=== PATIENT | male | born 1945 | race Caucasian/White ===

== ENCOUNTER 2017-07-16 13:19 | Inpatient (IN) | payer BC, MEDICARE ==
--- NOTE | 2017-07-16 13:42 | ED ---
Vanesa Sadnoval Alfonso, scribed for Paul Nina MD on 07/16/17 at 1330 . HPI Chest Pain - HPI Summary HPI Summary: STEMI ALERT CALLED AT 1314 ETA 3 MINUTES. 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 Symptoms alleviated by nothing. He denies any PMHx at this time. Dr. Duran (advanced research programs director) at the EMS stretcher immediately upon the patients ED arrival. He evaluated the patient and requested ED bypass. Thus, cardiac catheterization lab will initiate all further treatment. - History of Current Complaint Hx Obtained From: Patient, EMS Onset/Duration: Started Minutes Ago - 40, Still Present Timing: Constant Current Severity: Severe Chest Pain Location: Mid Sternal Alleviating Factor(s): Nothing Associated Signs and Symptoms: Positive: Chest Pain PMH/Surg Hx/FS Hx/Imm Hx Previously Healthy: Yes Opthamlomology History: Denies: Hx Legally Blind EENT History: Denies: Hx Deafness Infectious Disease History: Denies: Traveled Outside the [place] in Last 30 Days - Family History Known Family History: Positive: Unknown - ED BYPASS FOR STEMI Review of Systems Negative: Fever, Chills Negative: Erythema Negative: Sore Throat Positive: Chest Pain Negative: Shortness Of Breath, Cough Negative: Abdominal Pain, Vomiting, Nausea Negative: dysuria, hematuria Negative: Myalgia, Edema Negative: Rash Neurological: Other - Negative dizziness All Other Systems Reviewed And Are Negative: Yes Physical Exam - Summary Physical Exam Summary: Constitutional: Well-developed, Well-nourished, Alert. (-) Distressed Skin: Warm, Dry HENT: Normocephalic; Atraumatic Eyes: Conjunctiva normal Neck: Musculoskeletal ROM normal neck. (-) JVD, (-) Stridor, (-) Tracheal deviation Cardio: Rhythm regular, rate normal, Heart sounds normal; Intact distal pulses; The pedal pulses are 2+ and symmetric. Radial pulses are 2+ and symmetric. (-) Murmur Pulmonary/Chest wall: Effort normal. (-) Respiratory distress, (-) Wheezes, (-) Rales Abd: Soft, (-) Tenderness, (-) Distension, (-) Guarding, (-) Rebound Musculoskeletal: (-) Edema Lymph: (-) Cervical adenopathy Neuro: Alert, Oriented x3 Psych: Mood and affect Normal Triage Information Reviewed: Yes Vital Signs Reviewed: Yes Chest Pain Course/Dx - Course Assessment/Plan: STEMI ALERT CALLED AT 1314 ETA 3 MINUTES. 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 Symptoms alleviated by nothing. He denies any PMHx at this time. Dr. Duran (advanced research programs director) at the EMS stretcher immediately upon the patients ED arrival. He evaluated the patient and requested ED bypass. Thus, cardiac catheterization lab will initiate all further treatment. The patient is agreeable with this plan. - Diagnoses Provider Diagnoses: Acute TX During the Visit The Following Alert/Code Occurred: STEMI Discharge - Discharge Plan Condition: Guarded Disposition: ADMITTED TO [facility] Discharge Disposition Comment: cardiac catheterization lab Referrals: No Primary Care Phys,NOPCP [Primary Care Provider] - The documentation as recorded by the Vanesa bermudez Alfonso accurately reflects the service I personally performed and the decisions made by me, Paul Nina MD.
[2017-07-16 13:47] LABS: Hematocrit 38 % (42-52); Hemoglobin 12.5 g/dl (14.0-18.0); Mean Corpuscular HGB Conc 33 g/dl (31-36); Mean Corpuscular Hemoglobin 31 pg (27-31); Mean Corpuscular Volume 93 fL (80-94); Mean Platelet Volume 8 um3 (7.4-10.4); Red Blood Count 4.06 10^6/ul (4.0-5.4); Red Cell Distribution Width 14 % (10.5-15); White Blood Count 6.6 10^3/ul (3.5-10.8)
[2017-07-16] MEDS ORDERED: Ticagrelor* 90 MG TAB PO ONE (13:51)
[2017-07-16 14:03] LABS: Albumin 3.8 g/dL (3.2-5.2); BUN/Creatinine Ratio 17.3 (8-20); Calcium 8.4 mg/dL (8.6-10.3); EGFR African American 96.7 (>60); EGFR Non-African American 75.2 (>60); Globulin 2.5 g/dL (2-4); Potassium 3.4 mmol/L (3.5-5.0); Total Bilirubin 0.6 mg/dL (0.2-1.0); Total Protein 6.3 g/dL (6.4-8.9)
[2017-07-16 14:05] LABS: Troponin I 0.03 ng/mL (<0.04)
[2017-07-16] MEDS ORDERED: Iohexol 350 (CONTRAST) 200 ML MDV IV ONE ×2 (14:20→14:48)
[2017-07-16] MEDS ORDERED: Adenosine* 3 MG/ML VIAL ONE (14:27)
[2017-07-16] MEDS ORDERED: Midazolam* 1 MG/ML 5 ML VIAL (5 MG) ONE (14:47)
[2017-07-16] MEDS ORDERED: Heparin(*) 1000 UNIT/ML 10 ML VIAL CATH LAB IV ONE (14:47)
[2017-07-16] MEDS ORDERED: fentaNYL* 50 MCG/ML 2 ML VIAL (100 MCG VIAL) ONE (14:47)
[2017-07-16] MEDS ORDERED: nitroGLYCERIN DRIP* 250 ML ONE (14:48)
[2017-07-16] MEDS ORDERED: VERAPAMIL 2.5 MG/ML 4 ML VIAL ONE (14:48)
[2017-07-16] MEDS ORDERED: Lidocaine 1% INJ* 10 MG/ML 30 ML SDV ONE (14:48)
[2017-07-16] MEDS ORDERED: Heparin 2 UNITS/ML IVPREMIX* 2,000 ML IV ONE (14:48)
[2017-07-16] MEDS ORDERED: Atropine SYRINGE* 0.1 MG/ML 10 ML SYRINGE (1 MG) ONE (14:54)
[2017-07-16] MEDS ORDERED: Nitroglycerin TAB 0.4 MG* 0.4 MG TAB SL PRN (15:17)
[2017-07-16] MEDS ORDERED: oxyCODONE/Acetamin 5/325 MG* TAB PO PRN (15:19)
[2017-07-16] MEDS ORDERED: Acetaminophen TAB* 325 MG PO PRN (15:19)
[2017-07-16] MEDS ORDERED: Ondansetron INJ* 2 MG/ML VIAL IV PRN (15:19)
[2017-07-16] MEDS ORDERED: Potassium Chlor TAB* 20 MEQ TAB.ER PO ONE (15:24)
[2017-07-16] MEDS ORDERED: NS 0.9% 1000 ML* 1,000 ML IV SCH (15:30)
[2017-07-16] MEDS: Captopril TAB* 12.5 MG PO SCH ×2 (16:34→20:11)
[2017-07-16] MEDS: Metoprolol Tartrate TAB* 25 MG PO SCH ×2 (16:34→23:48)
[2017-07-16] MEDS: Atorvastatin* 80 MG TAB PO SCH (16:34)
[2017-07-16] MEDS ORDERED: Potassium Chloride LIQUID* 20 MEQ PACKET PO ONE (17:00)
[2017-07-16 17:10] LABS: HDL Cholesterol 42.5 mg/dL
[2017-07-16 17:15] LABS: Troponin I 18.45 ng/mL (<0.04)
[2017-07-16] MEDS: Ticagrelor* 90 MG TAB PO SCH (20:12)
[2017-07-16 20:48] LABS: Troponin I 58.25 ng/mL (<0.04)
[2017-07-16] MEDS ORDERED: Zolpidem TAB* 5 MG PO PRN (21:00)
--- NOTE | 2017-07-16 21:37 | HP ---
CC: Dr. Orantes * HISTORY AND PHYSICAL: DATE OF ADMISSION: 07/16/17 PRIMARY CARE PHYSICIAN: Dr. Orantes, [facility] in [place] HISTORY OF PRESENT ILLNESS: A 72-year-old male brought from the field with acute anterolateral ST elevation infarct. His history pieced together from the patient as well as his reveals that about 2 weeks ago, he had a stress through the [facility] for slow heart rate with apparently ectopy and right bundle branch block. Per report, that study showed no EKG changes, no symptoms, he exercised for 7 minutes and 43 seconds. He was hypertensive with exercise to 210/102. He had a right bundle branch block at rest. The scan reports perfusion defect inferiorly, which normalized with attenuation correction except for a small apical segment. He had transient ischemic dilatation, EF was 58%. He has not had any symptoms of angina. He has no history of syncope or near syncope. He does have occasional palpitations. 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 MEDICATIONS: Prehospital medications only eye drops. He has not been taking aspirin. ALLERGIES: SULFA. FAMILY HISTORY: Negative for premature coronary artery disease. SOCIAL HISTORY: He is . He is a nonsmoker for the past 4 years. REVIEW OF SYSTEMS: General: No weight loss, no fever. MANAGER BEAUTY: No history of TIA or CVA. GI: He denies peptic ulcer disease or bleeding. Heme: No history of malignancy or anemia except for his vocal cord cancer. Circulatory: No claudication. Remainder all negative. PHYSICAL EXAMINATION VITAL SIGNS: Initial BP 147/85, heart rate in the 40s with occasional PVCs. He was complaining of moderate chest discomfort, was not in distress. HEENT: No xanthelasma, scleral injection, or jaundice. EOMs normal. Mucosa moist. NECK: JVP not elevated, carotids normal without bruits, normal upstroke. LUNGS: Clear to percussion and auscultation. CARDIAC : Chest wall not tender, apex not palpable, normal S1, S2. No gallop or murmur, probable S4 gallop. ABDOMEN: Soft, nontender, no bruits, aorta not palpable or tender. Normal bowel sounds. Femoral pulses normal. No bruits. EXTREMITIES: Radial pulses palpable. Pedal pulses palpable. No cyanosis, clubbing, or edema. NEUROLOGIC: Cranial nerves intact. SKIN: Warm and perfused. PSYCH: Oriented and appropriately anxious. LABORATORY DATA: EKG from that field at 1317 hours shows sinus bradycardia, right bundle branch block, and ST elevation in I, aVL, V2 through V5. CBC notable only for hemoglobin of 12.5 with normal platelet count, chemistry panel with potassium of 3.4, random glucose 157. BNP elevated at 134, LDL 118, troponin 0.03. IMPRESSION: 1. Acute anterolateral ST elevation infarct. He was brought emergently to the shop laborer. 2. History of hypertriglyceridemia, lipid profile pending. 3. History of vocal cord cancer, follow through [place]. 4. Resting sinus bradycardia with right bundle branch block, asymptomatic. This may limit dosing of beta-blockers. [id number]/[facility] #: [id number] MTDD
[2017-07-17 03:19] LABS: Troponin I 55.43 ng/mL (<0.04)
[2017-07-17 06:57] LABS: BUN/Creatinine Ratio 18.2 (8-20); Calcium 8.6 mg/dL (8.6-10.3); EGFR African American 109.5 (>60); EGFR Non-African American 85.1 (>60); Potassium 4.3 mmol/L (3.5-5.0)
[2017-07-17] MEDS: Captopril TAB* 12.5 MG PO SCH ×3 (09:00→21:22)
[2017-07-17] MEDS ORDERED: Influenza VAC *QUAD* 2017-18* 0.5 ML SYRINGE IM ONE (09:00)
[2017-07-17] MEDS: Ticagrelor* 90 MG TAB PO SCH ×2 (09:01→21:22)
[2017-07-17] MEDS: Metoprolol Tartrate TAB* 25 MG PO SCH ×2 (09:01→21:22)
[2017-07-17] MEDS: Aspirin Low Dose CHEW TAB* 81 MG PO SCH (09:01)
[2017-07-17] MEDS: Enoxaparin(*) 60 MG/0.6 ML SYR SUBCUT SCH ×2 (13:03→23:50)
[2017-07-17] MEDS: Atorvastatin* 80 MG TAB PO SCH (17:37)
[2017-07-17] MEDS: Latanoprost 0.005%* 2.5 ml BTL BOTH EYES SCH (18:39)
--- NOTE | 2017-07-18 00:47 | CATH ---
CC: Dr. Orantes at [facility] * STENT REPORT: DATE OF PROCEDURE: 07/16/17 - ROOM #[id number] PRIMARY CARE PHYSICIAN: Dr. Orantes at [facility]. PROCEDURE: Right radial artery access, bilateral selective coronary cineangiography, left heart catheterization, left ventriculography, stent placement LAD 3.0 x 12 Synergy drug-eluting stent, FFR evaluation RCA. HISTORY: A 72-year-old male presenting with acute anterolateral ST elevation infarct, brought emergently to the laboratory clerk. PROCEDURE ACCESS: Right radial artery sheath 6F slender. MEDICATIONS: 1. Subcu lidocaine. 2. IV Versed. 3. IV fentanyl. 4. Verapamil 3 mg. 5. Nitroglycerin 300 mcg. 6. Heparin 3000 units IA. 7. Aspirin 324 mg pre-ER. 8. Heparin 3000 units IV. 9. Brilinta 180 mg p.o. loading dose. 10. IC nitroglycerin 100 mcg RCA prior to FFR evaluation. 11. Adenosine 100 mcg IC x2. DIAGNOSTIC CATHETER: 5F TIG4. GUIDING CATHETER: 6F VL 3.5. Final left coronary images with 6FL4 for better coaxial engagement, 5 pigtail. HEMODYNAMICS: Initial BP 147/85, LV 125/8-15, no aortic valve gradient on pullback. FFR RCA with 100 mcg IC adenosine x2 was 0.93, 0.93 while ensuring the guiding catheter was not wedged in the RCA ostium. It was disengaged after each IC injection of adenosine. ANGIOGRAPHY: RCA: The RCA is large, dominant, quite tortuous, just past the acute margin there is a very short 60% to 70% stenosis, distally there is normal flow. The PDA is moderate followed by a smaller posterolateral. That RCA lesion was subsequently evaluated with FFR, post FFR anatomy was unchanged. Left Main: The left main is very short with almost separate ostia. LAD: The LAD is moderate to large, is occluded in its midportion after a small diagonal branch. Circumflex: The circumflex is large, not dominant, with a small first marginal , the mid circumflex then has insignificant luminal irregularity, then supplies a moderate posterolateral followed by second moderate posterolateral, which has a 50% stenosis, the circumflex ends with a very small posterolateral. After LAD revascularization, there is no residual stenosis, there is normal flow , no dissection, no compromise of side branches. CONCLUSION: 1. Three-vessel disease with culprit LAD occlusion, insignificant moderate RCA stenosis by FFR, angiographically insignificant distal circumflex posterolateral stenosis. 2. Normal left-sided hemodynamics. 3. LV gram, there is preserved anterior and inferior basilar contraction, the anterior two thirds of the anterolateral wall, the apex, and the inferoapical segment are akinetic to dyskinetic, estimated LVEF 35% to 40%. 4. Successful right radial artery access. 5. Moderate dilatation of the aortic root. [id number]/[facility] #: [id number] [facility]
[2017-07-18] MEDS ORDERED: Adenosine* 3 MG/ML VIAL ONE (08:06)
[2017-07-18] MEDS: Metoprolol Tartrate TAB* 25 MG PO SCH ×2 (09:38→21:14)
[2017-07-18] MEDS: Captopril TAB* 12.5 MG PO SCH ×3 (09:38→21:13)
[2017-07-18] MEDS: Aspirin Low Dose CHEW TAB* 81 MG PO SCH (09:39)
[2017-07-18] MEDS: Ticagrelor* 90 MG TAB PO SCH ×2 (09:39→21:13)
[2017-07-18] MEDS: Timolol 0.5% OPTH.SOL* BTL BOTH EYES SCH (09:40)
[2017-07-18] MEDS: Enoxaparin(*) 60 MG/0.6 ML SYR SUBCUT SCH (12:25)
[2017-07-18] MEDS: Atorvastatin* 80 MG TAB PO SCH (15:37)
[2017-07-18] MEDS: Latanoprost 0.005%* 2.5 ml BTL BOTH EYES SCH (19:36)
[2017-07-19] MEDS: Enoxaparin(*) 60 MG/0.6 ML SYR SUBCUT SCH ×3 (00:18→23:34)
[2017-07-19] MEDS: Timolol 0.5% OPTH.SOL* BTL BOTH EYES SCH (09:28)
[2017-07-19] MEDS: Ticagrelor* 90 MG TAB PO SCH ×2 (09:29→21:01)
[2017-07-19] MEDS: Aspirin Low Dose CHEW TAB* 81 MG PO SCH (09:29)
[2017-07-19] MEDS: Metoprolol Tartrate TAB* 25 MG PO SCH ×2 (09:30→21:01)
[2017-07-19] MEDS: Lisinopril TAB* 5 MG PO SCH (09:30)
[2017-07-19] MEDS ORDERED: Perflutren Lipid Microsphere* 3 ML VIAL ONE (11:50)
--- NOTE | 2017-07-19 13:56 | ECHO ---
Patient: BERTIN DOWNEY [facility] Rec#: [id number] : 1945 Date: 07/19/2017 Age: 72y Height: 172.7 cm / 68.0 in Weight: 71.7 kg / 158.0 lbs Sex: M BSA: 1.9 Room#: 434 Admit Date#: 07/16/2017 Type: Inpatient Referring: Aravind Duran MD Reading: Leobardo Mcbride MD Services Host: Shanna Hernández RN RDCS Transthoracic Echocardiogram Indication: STEMI with PCI, dilated aortic root BP: 94/60 HR: 57 Rhythm: NSR with PACs Findings History: RBBB, HLD, Raynaud's disease, bilateral hip replacement, vocal cord cancer Technical Comments: The study is technically limited due to the patient's smoking history. Completed at 1320. Left Ventricle: The left ventricular chamber size is normal. Septal wall hypertrophy is observed. There is increased basal septal hypertrophy noted without evidence of an increased gradient across the left ventricular outflow tract. There are multiple regional wall motion abnormalities. With severe hypokinesis of the apical/anterior /lateral regions There is moderate to severely decreased left ventricular systolic function. The estimated ejection fraction is 25-30%. There is an E to A reversal in the mitral valve flow pattern suggestive of diastolic dysfunction. Left Atrium: The left atrial chamber size is normal. Right Ventricle: The right ventricular cavity size is normal. The right ventricular global systolic function is normal. Right Atrium: The right atrium appears normal. Aortic Valve: The aortic valve is trileaflet. The aortic valve leaflets are mildly thickened. There is mild aortic regurgitation. There is no evidence of aortic stenosis. Mitral Valve: The mitral valve leaflets are mildly thickened. There is trace to mild mitral regurgitation. There is no evidence of mitral stenosis. Tricuspid Valve: The tricuspid valve leaflets are normal. There is trace to mild tricuspid regurgitation. Unable to estimate the right ventricular systolic pressure. Pulmonic Valve: The pulmonic valve appears normal. There is a trace pulmonic regurgitation. There is no pulmonic stenosis. Pericardium: A trivial pericardial effusion is visualized.No signs of hemodynamic compromise. The pericardial effusion is seen adjacent to the right ventricle. Aorta: There is moderate dilatation of the ascending aorta. There is no dilatation of the aortic arch. There is severe dilatation of the aortic root.Maximal measurment 5.1 cm at the root. Pulmonary Artery: The main pulmonary artery appears normal. Venous: The inferior vena cava appears normal in size. There is an approximate 50% respiratory change in the inferior vena cava dimension. Contrast: Definity was used to optimize study. A total of 4 ml of diluted Definity was given IV. Summary: There was not any prior study for comparison. Conclusions The left ventricular chamber size is normal. Septal wall hypertrophy is observed. There is increased basal septal hypertrophy noted without evidence of an increased gradient across the left ventricular outflow tract. There are multiple regional wall motion abnormalities. With severe hypokinesis of the apical/anterior /lateral regions There is moderate to severely decreased left ventricular systolic function. The estimated ejection fraction is 25-30%. There is an E to A reversal in the mitral valve flow pattern suggestive of diastolic dysfunction. There is mild aortic regurgitation. There is trace to mild mitral regurgitation. There is trace to mild tricuspid regurgitation. Unable to estimate the right ventricular systolic pressure. There is a trace pulmonic regurgitation. A trivial pericardial effusion is visualized.No signs of hemodynamic compromise. There is severe dilatation of the aortic root.Maximal measurment 5.1 cm at the root. There is moderate dilatation of the ascending aorta. Measurements Name Value Normal Range RVDdMajor (2D) 3.2 cm (2.2 - 4.4) RAd ISD 4CH 5.1 cm (3.4 - 4.9) RA (A4C)W 3.6 cm (2.9 - 4.6) IVSd (2D) 1.3 cm (0.6 - 1) LVPWd (2D) 1 cm (0.6 - 1) LVIDd (2D) 4.9 cm (3.6 - 5.4) LVIDs (2D) 4.2 cm - LV FS (2D) 15 % (25 - 45) Aortic Annulus 2.4 cm (1.4 - 2.6) Ao root diameter (2D) 5.1 cm (2.1 - 3.5) Ascending Ao 4.2 cm (2.1 - 3.4) Aortic arch 3 cm (1.8 - 3.4) LA dimension (AP) 2D 2.2 cm (2.3 - 3.8) LAd ISD 4CH 5.1 cm (2.9 - 5.3) LA ISD 4CH W 3.7 cm (2.5 - 4.5) Name Value Normal Range LA ESV SP 4CH (A/L) 48 ml - LA ESV SP 2CH (A/L) 49 ml - LA ESV BP (A/L) 51 ml - LA ESV BP (A/L) index 26.6 ml/m2 - LA ESV SP 4CH (MOD) 46 ml - LA ESV SP 2CH (MOD) 43 ml - Name Value Normal Range MV E-wave Vmax 0.54 m/sec - MV deceleration time 204 msec - MV A-wave Vmax 0.82 m/sec - MV E:A ratio 0.65 ratio - LV septal e' Vmax 0.03 m/sec - LV lateral e' Vmax 0.03 m/sec - LV E:e' septal ratio 18 ratio - LV E:e' lateral ratio 18 ratio - Name Value Normal Range AV Vmax 1.1 m/sec - AV VTI 24.4 cm - AV peak gradient 5 mmHg - AV mean gradient 2.8 mmHg - LVOT Vmax 0.85 m/sec - LVOT VTI 18.3 cm - LVOT peak gradient 2.9 mmHg - LVOT mean gradient 1.7 mmHg - AR PHT 666 msec - CARLIN Vmax 0.42 m/sec - Name Value Normal Range IVC diameter 1.2 cm - Name Value Normal Range PV Vmax 0.71 m/sec -
--- NOTE | 2017-07-19 16:46 | RAD ---
INDICATION: Possible STEMI. Concern for aortic root dilatation. COMPARISON: None TECHNIQUE: Axial source images of the chest were acquired without intravenous contrast from just above the lung apices to the base of the diaphragm. Coronal and sagittal reconstructed images were acquired. FINDINGS: Adjacent to the right minor fissure (axial image 30 and sagittal image 22) there is a 4 mm pulmonary nodule at a location most consistent with a lymph node. At the lateral aspect of the right lower lobe there is a 2 mm subpleural pulmonary nodule. Lungs otherwise exhibit diffuse centrilobular emphysematous changes. The heart is normal size. There is a trace pericardial effusion. Evaluation of the heart and thoracic aorta is limited without intravenous contrast. Depicted best on the coronal plane images (image 40 of 93) the aortic bulb is dilated up to 5.5 cm in diameter. On the sagittal plane images the norman ascending aorta measures up to 4.2 cm in diameter. There is calcified atherosclerosis at the origins of the major branch vessels and along the descending thoracic aorta. There is no readily apparent mediastinal, hilar, or axillary lymphadenopathy. Mild degenerative changes of the thoracic spine includes loss of intervertebral disc height. There is subcutaneous induration and subcutaneous gas partially visualized overlying the midline epigastric area and is only partially visualized (image 68 of 68). IMPRESSION: 1. Evaluation of the thoracic aorta is limited without IV contrast. There is aneurysmal dilatation of the aortic bulb measuring up to 5.5 cm in diameter. There is aneurysmal dilatation of the ascending aorta measuring up to 4.2 cm in diameter. 2. At the midline upper epigastric area there is subcutaneous gas in induration. This is only partially visualized. These correlate to physical examination and/or abdominal wall injection sites. 3. A 4 mm nodule adjacent to the right minor fissure is most consistent with a lymph node. 4. Additional chronic and degenerative changes described in the body the report.
[2017-07-19] MEDS ORDERED: Warfarin TAB(*) 2.5 MG PO ONE (17:00)
[2017-07-19] MEDS: Atorvastatin* 80 MG TAB PO SCH (18:37)
[2017-07-19] MEDS: Latanoprost 0.005%* 2.5 ml BTL BOTH EYES SCH (18:39)
--- NOTE | 2017-07-20 05:25 | DS ---
CC: Dr. Orantes at [place], [place]; Dr. Aravind Duran; Dr. He Kwan, Radiation Medicine, [facility]; [facility] [place] DISCHARGE SUMMARY: DATE OF ADMISSION: 07/16/17 DATE OF DISCHARGE: FINAL DIAGNOSIS: Acute ST segment elevation anterior wall myocardial infarction. SECONDARY DIAGNOSES: Include: 1. Significant left ventricular ischemic cardiomyopathy. 2. Significant aortic root dilatation. 3. History of right bundle branch block. 4. History of hyperlipidemia. 5. Raynaud's disease. 6. History of vocal cord cancer. DISCHARGE MEDICATIONS: Include: 1. Crestor 40 mg a day. 2. Lovenox 60 mg b.i.d. subcu. 3. Lisinopril 5 mg a day. 4. Metoprolol tartrate 25 mg twice a day. 5. Sublingual nitroglycerin as needed. 6. Ticagrelor 90 mg twice a day. 7. Coumadin 2.5 mg daily. 8. Timolol. 9. Latanoprost eye drops as at home. 10. Aspirin 81 mg once a day. HOSPITAL COURSE: The patient is a pleasant 72-year-old gentleman who presented in the throes of an acute ST segment elevation anterior myocardial infarction on the day of admission on 07/16/17. Please refer to the H and P for complete details of presentation. The patient was brought to the cardiovascular laboratory and intervention was performed with placement of 3.0 x 12 mm long stent into the left anterior descending artery and a fractional flow reserve analysis of the distal right coronary artery. The FFR was found to be negative and as such no intervention was performed at that time. Left ventriculography suggested preserved proximal anterior inferior basilar contractility with two- thirds of the anterolateral apical inferior wall akinetic to dyskinetic. The overall EF by catheterization was estimated at 35% to 40%. During the course of the hospitalization, the patient was placed on beta-isidro , MURALI inhibition, Brilinta b.i.d. therapy, baby aspirin, and titrated as tolerated. On the day of discharge, repeat echocardiogram was performed which was interpreted showing significant anterior wall motion abnormality with an EF that was estimated at 25% to 30% according to Dr. Mcbride, who performed the echocardiogram. Of note, the aortic root was found to be dilated measured at 5.1 by echocardiography. The ascending aorta was also dilated as well, but a good assessment of that area could not be made as a small segment was seen and it was somewhat off-access. The patient was noted to have mild aortic regurgitation. There was trace to mild mitral regurgitation. There was trace to mild tricuspid regurgitation. Of note, the patient had been up and about walking for the last 2.5 days on the floor of the hospital. He showed no significant ventricular ectopic activity, but did have atrial quadrigeminy. He denied any specific chest, shoulder or arm discomfort up and about walking. On the day of discharge, the examination revealed vital signs with a blood pressure of 94/60 in the morning and pulse of 50 to 60s, respirations 16, O2 saturation 98% on room air. Neck was supple without increased JVP. Carotids had fair upstroke and volume. Conjunctivae pink. Sclerae clear. Lungs: Had mild decreased breath sounds bilaterally, but no active rales or rhonchi. Heart revealed no visible heaves, no palpable heaves or thrills. A regularly irregular rate was noted with atrial quadrigeminy. Abdomen was soft and nontender. Extremities without edema. The right radial artery had good antegrade flow. Neuro: The patient alert, oriented with normal mentation. Musculoskeletal: The patient with normal gait. Psychiatric: The patient with normal affect. Electrocardiogram over the course of the hospitalization had shown a right bundle branch block with ST segment elevations that came down over time with residual elevation seen to some degree still in V2, V3, and V4 with T-wave inversion already developing. There were small Q waves in V1 through V3 with preserved R waves still in those leads. Lead I and aVL had no Q waves. T-wave inversion in 1 and aVL were noted. T-wave inversion was also seen in V5 and biphasic in V6. Last laboratory results of record were from 07/20/17 with a BUN and creatinine of 33 and 1.2 with potassium of 4.5 , the BUN and creatinine had increased since earlier labwork. The lisinopril was decreased on discharge to 5 mg and the metoprolol tartrate was decreased to 25 mg BID. The patient will have a follow up BMP in 2 days as an outpatient. The patient's troponin peaked at 58 and his MB peaked at 243, with an early peak. His cholesterol on admission was 222 with an LDL of 136 and HDL of 42.5 and a triglyceride of 218. An echocardiogram done on 07/19/2017 described the LVEF at 25-30%. The aortic root showed marked dilatation at 5.2 cm and the ascending aorta (portion visible ) was 4.1, but was suboptimally imaged. There was mild aortic regurgitation and trace to mild mitral and tricuspid regurgitation. Given his reduced LVEF, a lifevest was ordered and the patient was fitted on 07/20 (day of discharge). The patient was continued on lovenox subq BID and will start low dose coumadin , 2.5 mg a day ,starting the day of discharge and get an INR with Saturday's bloodwork. Chest CT was performed on 07/19/2017 revealing a dilated aortic root at up to 5.5cm and a dilated . mildly, ascending aorta at 4.2cm. There was also mention of a 4mm nodule in the right minor fissure and a 2mm subpleural nodule at the lateral aspect of the lower right lobe. The patient will follow up with Dr. 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 The patient as mentioned above, will get blood work on Saturday. We will send copies of the discharge summary to the patient's family physician, radiation oncologist and ENT specialist to address the issue of the importanceof the CAT scan nodules mentioned above. [id number]/[facility] #: [id number] MTDD
[2017-07-20 07:58] VITALS: BP 92/56
[2017-07-20] MEDS: Lisinopril TAB* 5 MG PO SCH (08:15)
[2017-07-20] MEDS: Aspirin Low Dose CHEW TAB* 81 MG PO SCH (08:15)
[2017-07-20] MEDS: Ticagrelor* 90 MG TAB PO SCH (08:16)
[2017-07-20] MEDS: Metoprolol Tartrate TAB* 25 MG PO SCH (08:16)
[2017-07-20 08:17] LABS: Hematocrit 37 % (42-52); Hemoglobin 12.5 g/dl (14.0-18.0); Mean Corpuscular HGB Conc 34 g/dl (31-36); Mean Corpuscular Hemoglobin 32 pg (27-31); Mean Corpuscular Volume 93 fL (80-94); Mean Platelet Volume 9 um3 (7.4-10.4); Red Blood Count 3.96 10^6/ul (4.0-5.4); Red Cell Distribution Width 14 % (10.5-15); White Blood Count 6.2 10^3/ul (3.5-10.8)
[2017-07-20] MEDS: Timolol 0.5% OPTH.SOL* BTL BOTH EYES SCH (08:20)
[2017-07-20 09:08] LABS: BUN/Creatinine Ratio 26.6 (8-20); EGFR African American 73.7 (>60); EGFR Non-African American 57.3 (>60); Potassium 4.5 mmol/L (3.5-5.0)
== END 2017-07-20 10:05 | disposition home or self-care (01) | DRG 247 ==
LOC: ED 13:19 → ICU 14:56 → MEDTELE 07-17 13:18
PROVIDERS: ADMIT Internal Medicine Cardiovascular Disease; ATTEND Internal Medicine Cardiovascular Disease
PROC: B2111ZZ Fluoroscopy of Multiple Coronary Arteries using Low Osmolar Contrast (ICD-10-PCS; 2017-07-16)
PROC: B2151ZZ Fluoroscopy of Left Heart using Low Osmolar Contrast (ICD-10-PCS; 2017-07-16)
PROC: 4A023N7 Measurement of Cardiac Sampling and Pressure, Left Heart, Percutaneous Approach (ICD-10-PCS; 2017-07-16)
PROC: 4A033BC Measurement of Arterial Pressure, Coronary, Percutaneous Approach (ICD-10-PCS; 2017-07-16)
PROC: 027034Z Dilation of Coronary Artery, One Artery with Drug-eluting Intraluminal Device, Percutaneous Approach (ICD-10-PCS; principal; 2017-07-16 13:30)
DX: I21.09 ST elevation (STEMI) myocardial infarction involving other coronary artery of anterior wall (principal); I45.10 Unspecified right bundle-branch block; I08.3 Combined rheumatic disorders of mitral, aortic and tricuspid valves; R00.1 Bradycardia, unspecified; I25.5 Ischemic cardiomyopathy; Z96.643 Presence of artificial hip joint, bilateral; H40.9 Unspecified glaucoma; E78.1 Pure hyperglyceridemia; I77.819 Aortic ectasia, unspecified site; I73.00 Raynaud's syndrome without gangrene; Z85.21 Personal history of malignant neoplasm of larynx; Z79.01 Long term (current) use of anticoagulants; Z79.02 Long term (current) use of antithrombotics/antiplatelets; Z79.82 Long term (current) use of aspirin; Z92.3 Personal history of irradiation; Z88.2 Allergy status to sulfonamides; Z87.891 Personal history of nicotine dependence
CPT/HCPCS: 36415; 71250; 80048; 80053; 80061; 82550; 82553; 83721; 83874; 83880; 84484; 85025; 85027; 85610; 85730; 86850; 86900; 86901; 87641; 90686; 93005; 93306; 99156; 99157; A9270-GY; C1725; C1769; C1876; C1887; C8929; C9606-LD; J0153; J0461; J1644; J1650; J2001; J2250; J3010

== ENCOUNTER 2018-10-26 10:52 | Emergency (ER) | payer MEDICARE ==
--- OUTSIDE RECORDS SUMMARY | 2018-10-26 11:08 | XMS REPORT | Continuity of Care Document ---
:1945 External Reference #:[id number] Author Name ShethRuth james Care Team Providers Name Role Phone Raimundo Meadows MD Care Team Information Staff Appraiser Unavailable Raimundo Meadows MD Primary Care Physician Unavailable Payers Type Date Identification Numbers Payment Provider Subscriber Policy Number: [id number] Medicare Rah Robertson PayID: [id number] [address] [place] [address] Policy Number: [id number] [facility] Rah Robertson PayID: [id number] [address] [place] [address] Advance Directives Description No Information Available Problems Date Description Provider Status Onset: 09/25/2017 Left ventricular systolic Aravind Duran MD, [facility], Active dysfunction [facility] Onset: 09/25/2017 [facility] Onset: 07/25/[address] segment 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 Family History Date Family Member(s) Problem(s) Comments Father due to COPD () Mother due to Breast Cancer () Siblings 4 1 brother , 2 brothers, 1 with vascular, and 1 sister, lupus living Social History Type Date Description Comments Sex Unknown Marital Status Lives With Cigarette Use Quit 4 Years Ago ETOH Use Denies alcohol use Tobacco Use Start: Unknown Heavy tobacco smoker quit in 2012 (more than 10 cigarettes/day) Recreational Drug Use Denies Drug Use Smoking Status Reviewed: 10/02/18 Heavy tobacco smoker quit in 2012 (more than 10 cigarettes/day) Exercise Type/Frequency Exercises regularly walking 2-3 times a day, 30-40 yards, golf w/walking 95% of time Allergies, Adverse Reactions, Alerts Date Description Reaction Status Severity Comments 07/25/2017 Sulfa Antibiotics Active 08/26/2018 Aldactone Active 10/02/2018 Spironolactone Active hyperkalemia Medications Medication Date Status Form Strength Qnty SIG Indications Ordering Provider Lisinopril Active Tablets 20mg 90tabs 1/2 by I50.22 Raimundo Galloway 018 mouth De La Fuente, DO once a FACC day Crestor Active Tablets 40mg 90tabs 1 by Raimundo Galloway 000 mouth De La Fuente, DO every day FACC Metoprolol Active Tablets 25mg 180tab 1 by Raimundo Galloway Tartrate 000 s mouth De La Fuente, DO twice a FACC day Nitrostat Active Tablets 0.4mg 25tabs one sl Raimundo Galloway 000 Sub q5min up De La Fuente, DO to 3 FAC doses as needed Latanoprost Active daily Unknown 000 Aspirin Adult Active Tablets DR 81mg 1 by Unknown Low Dose 000 mouth every day Clopidogrel Active Tablets 75mg 1 by Unknown Bisulfate 000 mouth every day Aldactone Hx Tablets 25mg 45tabs 1/2 by I50.22 Raimundo Galloway 018 - mouth De La Fuente, DO daily FACC 018 Lisinopril Hx Tablets 10mg 90tabs 1 by Aravind Plunkett - mouth Sodums, every ENEIDA MARIN 018 morning, [facility] 2 by mouth every evening Plavix Hx Tablets 75mg 90tabs 1 by Aravind Plunkett - mouth Sodums, every day ENEIDA MARIN 018 [facility] Lisinopril Hx Tablets 10mg 180tab 1 by Aravind Plunkett - s mouth Sodums, every day ENEIDA MARIN 017 twice [facility] daily Effient Hx Tablets 10mg 30tabs Take 2 I50.22 Aravind Plunkett - tablets Sodums, the first MD, FACC, 017 day, then [facility]SCAI 1 by mouth every day Lovenox /0 Hx Solution 60mg/0.6ML 60 mg sc Unknown 000 - twice a day 017 Brilinta 0 Hx Tablets 90mg 1 tab by Unknown 000 - mouth twice a 017 day Coumadin /0 Hx Tablets 2.5mg take 1 Unknown 000 - tablet daily 017 Rosmery-Mond, 12 tablet tues. Inr today Timolol 0 Hx prn Unknown Maleate 000 - 019 Immunizations Description No Information Available Vital Signs Date Vital Result Comment 10/02/2018 8:21am Height 68 inches 5'8" Weight 160.00 lb Heart Rate 68 /min BP Systolic Sitting 116 mmHg Lue reg cuff BP Diastolic Sitting 64 mmHg Lue reg cuff BP Systolic Standing 112 mmHg Lue reg cuff BP Diastolic Standing 68 mmHg Lue reg cuff BMI (Body Mass Index) 24.3 kg/m2 Ejection Fraction 35-40% Echo 02/03/18 08/12/2018 8:02am Height 68 inches 5'8" Weight 160.00 lb w/o shoes Heart Rate 46 /min reg. BP Systolic Sitting 105 mmHg LA reg cuff BP Diastolic Sitting 65 mmHg LA reg cuff BP Systolic Standing 100 mmHg LA reg cuff BP Diastolic Standing 60 mmHg LA reg cuff Respiratory Rate 18 /min O2 % BldC Oximetry 97 % w/ oximeter BMI (Body Mass Index) 24.3 kg/m2 Ejection Fraction 35-40% 02/03/18 echo 02/25/2018 3:01pm Height 68 inches 5'8" Weight 162.00 lb w/ shoes Heart Rate 52 /min irreg BP Systolic Sitting 104 mmHg Lue BP Diastolic Sitting 70 mmHg Lue Respiratory Rate 18 /min BMI (Body Mass Index) 24.6 kg/m2 Ejection Fraction 35-40% as of 02/03/18 echo 02/11/2018 2:49pm Height 68 inches 5'8" Weight 160.00 lb w/ shoes Heart Rate 58 /min BP Systolic Sitting 114 mmHg lue reg cuff BP Diastolic Sitting 64 mmHg lue reg cuff BP Systolic Standing 118 mmHg lue reg cuff BP Diastolic Standing 66 mmHg lue reg cuff Respiratory Rate 18 /min BMI (Body Mass Index) 24.3 kg/m2 Ejection Fraction 34-40% echo 02/03/18 10/28/2017 8:05am Height 68 inches 5'8" Weight 157.00 lb with shoes Heart Rate 48 /min sit and 50 stand BP Systolic Sitting 90 mmHg Rue reg cuff BP Diastolic Sitting 56 mmHg Rue reg cuff BP Systolic Standing 102 mmHg Rue reg cuff BP Diastolic Standing 60 mmHg Rue reg cuff Respiratory Rate 16 /min BMI (Body Mass Index) 23.9 kg/m2 Ejection Fraction 35-40% date 08/19/17 ECHO 09/25/2017 3:24pm Height 68 inches 5'8" Weight 158.00 lb w/ shoes Heart Rate 50 /min BP Systolic Sitting 128 mmHg lue reg cuff BP Diastolic Sitting 62 mmHg lue reg cuff BP Systolic Standing 132 mmHg lue reg cuff BP Diastolic Standing 68 mmHg lue reg cuff Respiratory Rate 18 /min BMI (Body Mass Index) 24.0 kg/m2 Ejection Fraction 35-40% echo 08/19/17 08/12/2017 3:39pm Height 68 inches 5'8" Weight 157.00 lb w/ shoes Heart Rate 44 /min BP Systolic Sitting 118 mmHg lue reg cuff BP Diastolic Sitting 62 mmHg lue reg cuff BP Systolic Standing 122 mmHg lue reg cuff BP Diastolic Standing 74 mmHg lue reg cuff Respiratory Rate 18 /min BMI (Body Mass Index) 23.9 kg/m2 Ejection Fraction 30-35% echo 07/19/17 07/25/2017 3:06pm Heart Rate 56 /min sit and 64 stand BP Systolic Sitting 118 mmHg Rue reg cuff BP Diastolic Sitting 60 mmHg Rue reg cuff BP Systolic Standing 120 mmHg Rue reg cuff BP Diastolic Standing 74 mmHg Rue reg cuff Respiratory Rate 16 /min Results Test Date Facility Test Result H/L Range Note Basic Metabolic 09/24/2018 [facility] Sodium 136 mmol/L N 135- [address] [place] [address] [phone] Potassium 4.7 mmol/L N 3.5-5.0 Chloride 104 mmol/L N 101-111 Co2 Carbon Dioxide 24 mmol/L N 22-32 Anion Gap 8 mmol/L N 2-11 Glucose 92 mg/dL N 70-100 Blood Urea Nitrogen 38 mg/dL High 6-24 Creatinine 1.12 mg/dL N 0.67-1.17 BUN/Creatinine Ratio 33.9 High 8-20 Calcium 9.3 mg/dL N 8.6-10.3 Egfr Non- 64.3 >60 Egfr 77.8 >60 2 Basic Metabolic Panel 09/09/2018 [facility] Sodium 137 mmol/L N 135-145 [address] [place] [address] [phone] Potassium 5.3 mmol/L High 3.5-5.0 Chloride 109 mmol/L N 101-111 Co2 Carbon Dioxide 25 mmol/L N 22-32 Anion Gap 3 mmol/L N 2-11 Glucose 87 mg/dL N 70-100 Blood Urea Nitrogen 36 mg/dL High 6-24 Creatinine 1.23 mg/dL High 0.67-1.17 BUN/Creatinine Ratio 29.3 High 8-20 Calcium 9.3 mg/dL N 8.6-10.3 Egfr Non- 57.7 >60 Egfr 69.8 >60 3 Basic Metabolic Panel 08/26/2018 [facility] Sodium 135 mmol/L N 135-145 [address] [place] [address] [phone] Potassium 5.4 mmol/L High 3.5-5.0 Chloride 106 mmol/L N 101-111 Co2 Carbon Dioxide 24 mmol/L N 22-32 Anion Gap 5 mmol/L N 2-11 Glucose 84 mg/dL N 70-100 Blood Urea Nitrogen 35 mg/dL High 6-24 Creatinine 1.40 mg/dL High 0.67-1.17 BUN/Creatinine Ratio 25.0 High 8-20 Calcium 9.3 mg/dL N 8.6-10.3 Egfr Non- 49.7 >60 Egfr 60.1 >60 4 Order 08/12/2018 [facility]House EKG <pending> Basic Metabolic Panel 08/12/2018 [facility] Sodium 140 mmol/L N 135-145 [address] [place] [address] [phone] Potassium 5.4 mmol/L High 3.5-5.0 Chloride 109 mmol/L N 101-111 Co2 Carbon Dioxide 26 mmol/L N 22-32 Anion Gap 5 mmol/L N 2-11 Glucose 88 mg/dL N 70-100 Blood Urea Nitrogen 35 mg/dL High 6-24 Creatinine 1.38 mg/dL High 0.67-1.17 BUN/Creatinine Ratio 25.4 High 8-20 Calcium 9.5 mg/dL N 8.6-10.3 Egfr Non- 50.5 >60 Egfr 61.1 >60 5 Lipid Profile 08/12/2018 [facility] Triglycerides 115 mg/dL 6 (Trig/Chol/HDL) [address] [place], [place] [id number] [phone] Cholesterol 89 mg/dL 7 HDL Cholesterol 36.8 mg/dL 8 LDL Cholesterol 29 mg/dL 9 BUN/Creat/GFR 07/29/2018 [facility] Poc Blood Urea 31 mg/dL High 8-[address] [place] [address] [phone] Poc Creatinine 1.2 mg/dL N 0.6-1.3 10 Poc BUN/Creatinine Ratio 25.8 High 8-20 Egfr Non- 59.3 >60 Egfr 71.8 >60 11 Basic Metabolic 02/11/2018 [facility] Sodium 135 mmol/L Low 139-145 Panel [address] [place] [address] [phone] Potassium 4.7 mmol/L N 3.5-5.0 Chloride 102 mmol/L N 101-111 Co2 Carbon Dioxide 27 mmol/L N 22-32 Anion Gap 6 mmol/L N 2-11 Glucose 75 mg/dL N 70-100 Blood Urea Nitrogen 27 mg/dL High 6-24 Creatinine 1.05 mg/dL N 0.67-1.17 BUN/Creatinine Ratio 25.7 High 8-20 Calcium 8.8 mg/dL N 8.6-10.3 Egfr Non- 69.4 >60 Egfr 89.3 >60 12 Inr/Protime 08/19/2017 [facility] Inr 1.79 High 0.89-1.11 [address] [place] [address] [phone] Inr/Protime 08/15/2017 [facility] Inr 1.94 High 0.89-1.11 [address] [place] [address] [phone] Inr/Protime 08/12/2017 [facility] Inr 1.59 High 0.89-1.11 [address] [place] [address] [phone] Inr/Protime 08/08/2017 [facility] Inr 1.46 High 0.89-1.11 [address] [place] [address] [phone] Inr/Protime 08/05/2017 [facility] Inr 2.01 High 0.89-1.11 [address] [place] [address] [phone] Inr/Protime 08/01/2017 [facility] Inr 3.32 High 0.89-1.11 [address] [place] [address] [phone] Inr/Protime 07/29/2017 [facility] Inr 3.65 High 0.89-1.11 [address] [place] [address] [phone] Inr/Protime 07/25/2017 [facility] Inr 3.27 High 0.89-1.11 [address] [place] [address] [phone] Basic Metabolic 07/22/2017 [facility] Sodium 136 mmol/L N 133- 145 Panel [address] [place] [address] [phone] Potassium 4.8 mmol/L N 3.5-5.0 Chloride 103 mmol/L N 101-111 Co2 Carbon Dioxide 28 mmol/L N 22-32 Anion Gap 5 mmol/L N 2-11 Glucose 95 mg/dL N 70-100 Blood Urea Nitrogen 30 mg/dL High 6-24 Creatinine 1.03 mg/dL N 0.67-1.17 BUN/Creatinine Ratio 29.1 High 8-20 Calcium 9.4 mg/dL N 8.6-10.3 Egfr Non- 71.0 N >60 Egfr 91.3 N >60 13 Inr/Protime 07/22/2017 [facility] Inr 1.04 N 0.89-1.11 [address] [place] [address] [phone] 1 To be done in 2 weeks 2 Because ethnic data is not always readily available, this report includes an eGFR for both -Americans and non- Americans. The National Kidney Disease Education Program (NKDEP) does not endorse the use of the MDRD equation for patients that are not between the ages of 18 and 70, are , have extremes of body size, muscle mass, or nutritional status, or are non- or non-. According to the National Kidney Foundation, irrespective of diagnosis, the stage of the disease is based on the level of kidney function: Stage Description GFR(mL/min/1.73 m(2)) 1 Kidney damage with normal or decreased GFR 90 2 Kidney damage with mild decrease in GFR 60-89 3 Moderate decrease in GFR 30-59 4 Severe decrease in GFR 15-29 5 Kidney failure <15 (or dialysis) 3 Because ethnic data is not always readily available, this report includes an eGFR for both -Americans and non- Americans. The National Kidney Disease Education Program (NKDEP) does not endorse the use of the MDRD equation for patients that are not between the ages of 18 and 70, are , have extremes of body size, muscle mass, or nutritional status, or are non- or non-. According to the National Kidney Foundation, irrespective of diagnosis, the stage of the disease is based on the level of kidney function: Stage Description GFR(mL/min/1.73 m(2)) 1 Kidney damage with normal or decreased GFR 90 2 Kidney damage with mild decrease in GFR 60-89 3 Moderate decrease in GFR 30-59 4 Severe decrease in GFR 15-29 5 Kidney failure <15 (or dialysis) 4 Because ethnic data is not always readily available, this report includes an eGFR for both -Americans and non- Americans. The National Kidney Disease Education Program (NKDEP) does not endorse the use of the MDRD equation for patients that are not between the ages of 18 and 70, are , have extremes of body size, muscle mass, or nutritional status, or are non- or non-. According to the National Kidney Foundation, irrespective of diagnosis, the stage of the disease is based on the level of kidney function: Stage Description GFR(mL/min/1.73 m(2)) 1 Kidney damage with normal or decreased GFR 90 2 Kidney damage with mild decrease in GFR 60-89 3 Moderate decrease in GFR 30-59 4 Severe decrease in GFR 15-29 5 Kidney failure <15 (or dialysis) 5 Because ethnic data is not always readily available, this report includes an eGFR for both -Americans and non- Americans. The National Kidney Disease Education Program (NKDEP) does not endorse the use of the MDRD equation for patients that are not between the ages of 18 and 70, are , have extremes of body size, muscle mass, or nutritional status, or are non- or non-. According to the National Kidney Foundation, irrespective of diagnosis, the stage of the disease is based on the level of kidney function: Stage Description GFR(mL/min/1.73 m(2)) 1 Kidney damage with normal or decreased GFR 90 2 Kidney damage with mild decrease in GFR 60-89 3 Moderate decrease in GFR 30-59 4 Severe decrease in GFR 15-29 5 Kidney failure <15 (or dialysis) 6 Desirable: <150 Borderline High: 150-199 High: 200-499 Very High: >500 7 Desirable: <200 Borderline High: 200-239 High: >239 8 Low: <40 Desirable: 40-60 High: >60 9 Desirable: <100 Near Optimal: 100-129 Borderline High: 130-159 High: 160-189 Very High: >189 10 General Lithographic Worker: [id number] 11 Because ethnic data is not always readily available, this report includes an eGFR for both -Americans and non- Americans. The National Kidney Disease Education Program (NKDEP) does not endorse the use of the MDRD equation for patients that are not between the ages of 18 and 70, are , have extremes of body size, muscle mass, or nutritional status, or are non- or non-. According to the National Kidney Foundation, irrespective of diagnosis, the stage of the disease is based on the level of kidney function: Stage Description GFR(mL/min/1.73 m(2)) 1 Kidney damage with normal or decreased GFR 90 2 Kidney damage with mild decrease in GFR 60-89 3 Moderate decrease in GFR 30-59 4 Severe decrease in GFR 15-29 5 Kidney failure <15 (or dialysis) 12 Because ethnic data is not always readily available, this report includes an eGFR for both -Americans and non- Americans. The National Kidney Disease Education Program (NKDEP) does not endorse the use of the MDRD equation for patients that are not between the ages of 18 and 70, are , have extremes of body size, muscle mass, or nutritional status, or are non- or non-. According to the National Kidney Foundation, irrespective of diagnosis, the stage of the disease is based on the level of kidney function: Stage Description GFR(mL/min/1.73 m(2)) 1 Kidney damage with normal or decreased GFR 90 2 Kidney damage with mild decrease in GFR 60-89 3 Moderate decrease in GFR 30-59 4 Severe decrease in GFR 15-29 5 Kidney failure <15 (or dialysis) 13 Because ethnic data is not always readily available, this report includes an eGFR for both -Americans and non- Americans. The National Kidney Disease Education Program (NKDEP) does not endorse the use of the MDRD equation for patients that are not between the ages of 18 and 70, are , have extremes of body size, muscle mass, or nutritional status, or are non- or non-. According to the National Kidney Foundation, irrespective of diagnosis, the stage of the disease is based on the level of kidney function: Stage Description GFR(mL/min/1.73 m(2)) 1 Kidney damage with normal or decreased GFR 90 2 Kidney damage with mild decrease in GFR 60-89 3 Moderate decrease in GFR 30-59 4 Severe decrease in GFR 15-29 5 Kidney failure <15 (or dialysis) Procedures Date Code Description Status 10/02/2018 15610 EKG Tracing & Interpretation Completed 08/12/2018 65255 EKG Tracing & Interpretation Completed 02/03/2018 73594 ECHO Transthorasic Realtime 2D W Doppler & Color Flow Hosp Completed 08/19/2017 13483 Echocardiogram, Limited Study Completed 07/25/2017 42587 EKG Tracing & Interpretation Completed 07/19/2017 85334 ECHO Transthorasic Realtime 2D W Doppler & Color Flow Hosp Completed 07/19/2017 97889 EKG, Interpretation Only Completed 07/18/2017 42099 EKG, Interpretation Only Completed 07/18/2017 56343 EKG, Interpretation Only Completed 07/17/2017 88418 EKG, Interpretation Only Completed 07/16/2017 54153 Intravascular Blood Flow Velocity Completed 07/16/2017 20023 Left Heart Cath. Incl S/I Coronaries, Angio S/I V Gram If Completed Done 07/16/2017 29599 EKG, Interpretation Only Completed 07/16/2017 17186 Revascularization Acute Total/Subtotal Occlusion Completed Encounters Type Date Location Provider Dx Diagnosis Office Visit 08/12/2018 [facility] Raimundo De La Fuente, I25.2 Old myocardial 8:20a Of Gardening Instructor DO FACC infarction E78.5 Hyperlipidemia, unspecified I10 Essential (primary) hypertension I25.5 Ischemic cardiomyopathy I71.2 Thoracic aortic aneurysm, without rupture F17.201 Nicotine dependence, unspecified, in remission Office Visit 02/25/2018 3:20p [facility] Aravind Fallon I25.2 Old myocardial Of Gardening In[facility] [place] [facility] [place] Roger, infarction FACC, FSCAI I50.22 Chronic systolic (congestive) heart failure I71.2 Thoracic aortic aneurysm, without rupture Office Visit 02/11/2018 3:00p [facility] Aravind Fallon I25.2 Old myocardial Of [employer]ening In[facility] AT [facility] Duran MD, infarction FACC, FSCAI I50.9 Heart failure, unspecified I71.9 Aortic aneurysm of unspecified site, without rupture Office Visit 10/28/2017 8:20a [facility] Aravind Fallon I25.2 Old myocardial Of Gardening Instructor AT [facility] Duran MD, infarction FACC, FSCAI I50.22 Chronic systolic (congestive) heart failure Office Visit 09/25/2017 3:20p [facility] Aravind Fallon I25.2 Old myocardial Of Gardening Instructor AT [facility] Duran MD, infarction FACC, FSCAI I50.22 Chronic systolic (congestive) heart failure I71.9 Aortic aneurysm of unspecified site, without rupture Office Visit 08/12/2017 3:00p [facility] Aravind Fallon I50.22 Chronic systolic Of [employer]ening Instructor AT [facility] Duran MD, (congestive) heart FACC, FSCAI failure Office Visit 07/25/2017 3:20p [facility] Aravind Fallon I21.02 Stemi involving Of Gardening Instructor AT [facility] Duran MD, left anterior FACC, FSCAI descending coronary artery I50.22 Chronic systolic (congestive) heart failure Office Visit 07/20/2017 1:53p [facility] Eugenio Nation I21.02 Stemi involving Of Gardening Instructor [place] [facility] [place]sey, FACC, left anterior FSCAI descending coronary artery Office Visit 07/19/2017 1:51p [facility] Eugenio Nation, I21.02 Stemi involving Of Gardening Instructor [place] [facility] [place] M.D., FACC, left anterior FSCAI descending coronary artery Office Visit 07/18/2017 4:23p [facility] Eugenio Nation, I21.02 Stemi involving Of Gardening Instructor AT [facility] [place] M.D., FACC, left anterior FSCAI descending coronary artery Office Visit 07/17/2017 10:19a [facility] Aravind Fallon I21.02 Stemi involving Of Gardening Instructor AT [facility] [place] MD Roger, left anterior FACC, FSCAI descending coronary artery Office Visit 07/16/2017 12:13p [facility] Aravind Fallon I21.02 Stemi involving Of Gardening Instructor AT [facility] [place] Roger, left anterior FACC, FSCAI descending coronary artery Plan of Treatment 10/02/2018 - Raimundo De La Fuente, FACCI25.2 Old myocardial infarctionComments:It has been at least 1 year since the heart attack. You can stop taking clopidogrel (plavix) in anticipation of the surgery.I would recommend you continue the aspirin without holding for surgery. This increases the risk of bleeding complications of surgery but probably will decreases the risk havinga heart attack during or after surgery.Follow up:f/u as previously nfqkqxuA78.9 Cardiomyopathy, ywbzankftpfF49.5 Ischemic hqtjyqjhuyoemlI66.2 Thoracic aortic aneurysm, without enyjyzoL37.201 Nicotine dependence, unspecified, in remission
--- NOTE | 2018-10-26 11:24 | ED ---
Headache - HPI Summary HPI Summary: Pt is a 73 y/o male who presents to the ED c/o diplopia. He states he began with a headache 2 days ago, but no longer has one. Pt reports intermittent vertical diplopia. He denies any vision loss, numbness, weakness, difficulty with speech, or unsteady gait. Pt has glaucoma and uses daily eye drops. He had cataract surgery 4-5 months ago, and since then denies any change in his glasses prescription. Pt had a hernia repair 10 days ago. Pt takes daily ASA. - History Of Current Complaint Chief Complaint: EDHeadache Stated Complaint: HEADACHE Time Seen by Provider: 10/26/18 11:21 Hx Obtained From: Patient Onset/Duration: Gradual Onset, Started days ago - 2, Still Present Currently Pain Is: Current Pain Scale(0-10)= - 0 Timing: Intermittent, Lasting: Location of Headache: Diffuse Aggravating Factor: Nothing Allevating Factors: Nothing Associated Signs And Symptoms: Visual Changes - Diplopia - Allergies/Home Medications Allergies/Adverse Reactions: Allergies Allergy/AdvReac Type Severity Reaction Status Date / Time Sulfa (Sulfonamide Allergy Unknown Verified 10/26/18 11:02 Antibiotics) Reaction Details Home Medications: Home Medications Lisinopril TAB* [Prinivil TAB 5 MG*] 10 mg PO DAILY 10/26/18 [History Confirmed 10/26/18] Rosuvastatin Calcium 40 mg PO DAILY 10/26/18 [History Confirmed 10/26/18] PMH/Surg Hx/FS Hx/Imm Hx Endocrine/Hematology History: Denies: Hx Diabetes Cardiovascular History: Reports: Hx Myocardial Infarction Denies: Hx Atrial Fibrillation, Hx Hypertension History: Denies: Hx Renal Disease Musculoskeletal History: Reports: Hx Arthritis - bilateral hip replacement Sensory History: Reports: Hx Cataracts, Hx Contacts or Glasses, Hx Glaucoma Denies: Hx Legally Blind, Hx Deafness, Hx Hearing Aid Opthamlomology History: Reports: Hx Cataracts, Hx Contacts or Glasses, Hx Glaucoma Denies: Hx Legally Blind - Cancer History Cancer Type, 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 hip replacements 1995. Heart stent 2016. cataract surgery 2017. hernia repair 2019 Infectious Disease History: No Infectious Disease History: Denies: Traveled Outside the [place] in Last 30 Days - Family History Known Family History: Negative: Cardiac Disease - CAD, Other - stroke - Social History Alcohol Use: None Hx Substance Use: No Substance Use Type: Reports: None Hx Tobacco Use: Yes Smoking Status (MU): Former Smoker Review of Systems Positive: Diplopia. Negative: Other - vision loss Neurological: Other - NEGATIVE: difficulty with speech, unsteady gait Positive: Headache. Negative: Weakness, Numbness All Other Systems Reviewed And Are Negative: Yes Physical Exam - Summary Physical Exam Summary: Appearance: Well appearing, no pain distress Skin: warm, dry, reflects adequate perfusion Head/face: normal Eyes: EOMI, SYLWIA, binocular double vision, pupils 3 mm bilaterally ENT: mucous membranes moist Neck: supple, non-tender Respiratory: CTA, breath sounds present Cardiovascular: RRR, pulses symmetrical Abdomen: non-tender, soft, surgical scar left inguinal area Bowel Sounds: present Musculoskeletal: normal, strength/ROM intact Neuro: normal, sensory motor intact, A&Ox3 GCS: 15 Triage Information Reviewed: Yes Vital Signs On Initial Exam: Initial Vitals Temp Pulse Resp BP Pulse Ox 96.9 F 52 18 151/73 93 10/26/18 10:58 10/26/18 10:58 10/26/18 10:58 10/26/18 10:58 10/26/18 10:58 Vital Signs Reviewed: Yes Diagnostics - Vital Signs Vital Signs Temp Pulse Resp BP Pulse Ox 10/26/18 10:58 96.9 F 52 18 151/73 93 - Laboratory Result Diagrams: 10/26/18 10:57 10/26/18 10:57 Lab Statement: Any lab studies that have been ordered have been reviewed, and results considered in the medical decision making process. - CT Brain CT CT Interpretation Completed By: Radiologist Summary of CT Findings: No intracranial mass or hemorrhage is noted. ED physician reviewed radiology report. - EKG 11:43 Cardiac Rate: Bradycardia - [address] Segment: Non-Specific Summary of EKG Findings: 1st degree AV block, RBBB National Institutes Of Health - NIH Scale Level of Consciousness: Alert/Keenly Responsive Ask Patient the Month and His/Her Age: Both Correct Ask Pt to Open/Close Eyes and Nursing Department Chairperson/Release Non-Paretic Hand: Both Correctly Best Gaze (Only Horizontal Eye Movement): Normal Visual Field Testing: No Visual Loss Facial Paresis-Pt to Smile & Close Eyes or Grimace Symmetry: Normal/Symmetrical Motor Function - Right Arm: No Drift-Holds 10 Seconds Motor Function - Left Arm: No Drift-Holds 10 Seconds Motor Function - Right Leg: No Drift-Holds 10 Seconds Motor Function - Left Leg: No Drift-Holds 10 Seconds Limb Ataxia-Must be out of Proportion to Weakness Present: Absent Sensory (Use Pinprick to Test Arms/Legs/Trunk/Face): Normal Best Language (Describe Picture, Name Items): No Aphasia Dysarthria (Read Several Words): Normal Extinction and Inattention: No Abnormality Total Score: 0 Headache Course/Dx - Course Course Of Treatment: Nurse's notes reviewed. Patient with isolated diplopia that is binocular nature. Appears to have some correction with tilting of his head to the left. Concern for a right sixth nerve palsy from possible infarct. CT scan and laboratories benign. Discussed the case with the neurologist who wished for the patient be placed on full dose aspirin. He'll follow him up promptly in the office.. - Diagnoses Differential Diagnosis/HQI/PQRI: Epidural Hematoma, Subdural Hematoma, Migraine , Other - Myasthenia gravis, cranial nerve lesion Provider Diagnoses: Sixth [abducent] nerve palsy, right eye, Diplopia - Physician Notifications Discussed Care Of Patient With: Aneudy Nichols Time Discussed With Above Provider: 12:35 Instructed by Provider To: Have Pt Call For Appt. - Dr. Nichols wants to see pt this week. Discharge - Sign-Out/Discharge Documenting (check all that apply): Patient Departure - Discharge - Discharge Plan Condition: Stable Disposition: HOME Prescriptions: Aspirin [Aspirin EC] 325 mg PO DAILY #30 tablet. Patient Education Materials: Diplopia (ED) Referrals: Raimundo Meadows MD [Primary Care Provider] - Aneudy Nichols MD [Medical Doctor] - Additional Instructions: Call first thing tomorrow to schedule prompt follow-up with Dr. nichols the neurologist. We presume you to have a 6th cranial nerve palsy or infarct. Return with severe headache, numbness/weakness, worse, new symptoms or other concerns as discussed. - Billing Disposition and Condition Condition: STABLE Disposition: Home - Attestation Statements Document Initiated by Scribe: Yes Documenting Scribe: Oumou Bowman Provider For Whom Scribe is Documenting (Include Credential): MD Nova Maria Attestation: I, Oumou Bowman, scribed for Toño Smith MD on 10/26/18 at 1822. Scribe Documentation Reviewed: Yes Provider Attestation: The documentation as recorded by the scribeOumou accurately reflects the service I personally performed and the decisions made by me, Toño Smith MD Status of Scribe Document: Viewed
[2018-10-26] MEDS ORDERED: NS 0.9% 1000 ML** 1,000 ML IV ONE (11:38)
[2018-10-26 12:01] LABS: ABS Basophils 0 10^3/ul (0-0.2); ABS Eosinophils 0.1 10^3/ul (0-0.6); ABS Lymphocytes 1.4 10^3/ul (1.0-4.8); ABS Monocytes 0.6 10^3/ul (0-0.8); ABS Neutrophils 3.1 10^3/ul (1.5-7.7); ABS Nucleated RBC 0 10^3/ul; Eosinophil % 1.4 %; Hematocrit 32 % (42-52); Hemoglobin 10.6 g/dl (14.0-18.0); Lymphocyte % 26.7 %; Mean Corpuscular HGB Conc 33 g/dl (31-36); Mean Corpuscular Hemoglobin 31 pg (27-31); Mean Corpuscular Volume 95 fL (80-94); Mean Platelet Volume 7.9 fL (7.4-10.4); Nucleated Red Blood Cells % 0; Platelet Count 207 10^3/ul (150-450); Red Blood Count 3.37 10^6/ul (4.00-5.40); Red Cell Distribution Width 13 % (10.5-15); White Blood Count 5.3 10^3/ul (3.5-10.8)
[2018-10-26 12:09] LABS: Activated Partial Thrombo Time 32.5 seconds (26.0-36.3); INR 1.01 (0.77-1.02)
[2018-10-26 12:20] LABS: Albumin 3.6 g/dL (3.2-5.2); Albumin/Globulin Ratio 1.3 (1-3); BUN/Creatinine Ratio 29.8 (8-20); Calcium 8.8 mg/dL (8.6-10.3); EGFR African American 95.2 (>60); EGFR Non-African American 78.7 (>60); Globulin 2.7 g/dL (2-4); Potassium 4.8 mmol/L (3.5-5.0); Total Bilirubin 0.4 mg/dL (0.2-1.0); Total Protein 6.3 g/dL (6.4-8.9)
[2018-10-26] MEDS ORDERED: Aspirin EC TAB* 325 MG PO ONE (12:45)
[2018-10-26] MEDS ORDERED: Aspirin EC TAB* 81 MG TAB.EC ONE (12:55)
[2018-10-26] MEDS ORDERED: Aspirin EC TAB* 81 MG TAB.EC PO ONE (12:57)
[2018-10-26 14:03] VITALS: BP 126/81
== END 2018-10-26 13:30 | disposition home or self-care (01) ==
LOC: ED 10:52
DX: H49.21 Sixth [abducent] nerve palsy, right eye (principal); H53.2 Diplopia; Z79.82 Long term (current) use of aspirin; Z88.2 Allergy status to sulfonamides; I25.2 Old myocardial infarction; Z87.891 Personal history of nicotine dependence; I45.10 Unspecified right bundle-branch block; I44.0 Atrioventricular block, first degree
CPT/HCPCS: 36415; 70450; 80053; 83519; 85025; 85610; 85730; 93005; 96360; 96361; 99283; A9270-GY